=== PATIENT | female | born 1950 | race Caucasian/White ===

== ENCOUNTER 2016-11-27 11:24 | Emergency (ER) | payer MEDICARE, OTHER | END 2016-11-27 12:43 | disposition home or self-care (01) | LOC: FER 11:24 | DX: B34.9 Viral infection, unspecified (principal); E03.9 Hypothyroidism, unspecified; Z90.49 Acquired absence of other specified parts of digestive tract; Z98.51 Tubal ligation status; Z79.899 Other long term (current) drug therapy; Z88.1 Allergy status to other antibiotic agents; Z91.040 Latex allergy status | CPT/HCPCS: 87450; 87804; 87899; 99283 ==

== ENCOUNTER → 2020-06-30 | Day surgery (SDC) | payer MEDICARE, OTHER ==
[~2020-06-30] MED LIST: CALCIUM 600 +1 EAC7 PO; LOPRESSOR25 MG PO; LOVAZA1 GM PO; ONCE DAILY1 EACH PO; SYNTHROID112 MCG PO; TRAZODONE HCL150 MG PO; VITAMIN B-650 MG PO; VITAMIN B12-FO1 EACH PO; VITAMIN D3 PO; ZOLOFT 25MG TAB25 MG PO
== END | disposition home or self-care (01) ==
LOC: FAS 06:45
DX: Z12.11 Encounter for screening for malignant neoplasm of colon (principal); D12.3 Benign neoplasm of transverse colon; D12.5 Benign neoplasm of sigmoid colon; K21.9 Gastro-esophageal reflux disease without esophagitis; K57.30 Diverticulosis of large intestine without perforation or abscess without bleeding; K29.70 Gastritis, unspecified, without bleeding; K44.9 Diaphragmatic hernia without obstruction or gangrene; E03.9 Hypothyroidism, unspecified; Z80.0 Family history of malignant neoplasm of digestive organs; Z87.891 Personal history of nicotine dependence; Z20.828 Contact with and (suspected) exposure to other viral communicable diseases
CPT/HCPCS: J2405; J2704; J7120